=== PATIENT | male | born 1965 | race Caucasian/White ===

== ENCOUNTER 2018-02-07 05:33 | Day surgery (SDC) | payer BC ==
[~2018-02-07] VITALS: Ht 170.2 cm; Wt 88.0 kg
--- NOTE | ~2018-02-07 | OP ---
PATIENT NAME: MAYTE SAWYER MEDICAL RECORD: [id number] :65 LOCATION:D.OPS ADMISSION DATE: SURGEON: TIM OLMOS MD DATE OF OPERATION: 02/07/2018 PREOPERATIVE DIAGNOSES: 1. Bleeding internal hemorrhoids. 2. Hypertension. POSTOPERATIVE DIAGNOSES: 1. Bleeding internal hemorrhoids. 2. Hypertension. PROCEDURE: 1. Right anterior hemorrhoidectomy. 2. Anal exam under anesthesia. SURGEON: Tim Olmos MD REPORT OF PROCEDURE: The patient was placed in lithotomy position and the perianal region was prepped and draped in sterile fashion. A 360-degree inspection of the anus was performed using a [facility] endoscope. Upon inspection, the patient was noted to have a very large right anterior hemorrhoid that was mainly internal but had some external component extending out to a moderate-sized skin tag. The patient did have some smaller internal and external hemorrhoids visible in the other columns, but none of these were large enough to require any sort of intervention. We placed a 2-0 chromic at the base of the right anterior hemorrhoid. This was tied down tightly and then the hemorrhoid was excised off of the sphincteric musculature using electrocautery. Care was taken not to injure the sphincter muscles during this portion of the procedure. Once the hemorrhoid was removed, then we irrigated out the wound and stopped any bleeding using electrocautery. The previously placed suture was then run from internal to external in a locking fashion. We irrigated out the rectum one last time and assured there was no sign of any surgical bleeding, which there was none. The patient's anus was then packed with Gelfoam dipped in [place]. COMPLICATIONS: None. CONDITION: Stable. ANESTHESIA: General endotracheal. BLOOD LOSS: 50 mL. TRANSINT:[id number] Voice Confirmation ID: [id number] DOCUMENT ID: [id number] CC: Juan Carlos Payton OPERATIVE REPORT [id number] MAYTE SAWYER CHRISTIAN MD at 1110 CC: [id number] DICTATION DATE: 02/07/18 0844 PHYSICAL AERODYNAMICIST: 02/07/18 1201 [facility] 02/07/18 [place] [address]
[~2018-02-07 05:33] MED LIST: PRINIVIL20 MG PO
[2018-02-07 06:31] VITALS: BP 113/67; Ht 170.2 cm; Wt 88.0 kg
[2018-02-07 06:40] LABS: HEMATOCRIT 39.8 % (42.0-54.0); HEMOGLOBIN 14.4 g/dL (13.5-17.5); MCH 30.8 pg (26.0-34.0); MCHC 36.2 g/dL (31.0-37.0); MEAN PLATELET VOLUME 9.5 fL (7.4-10.4); RBC 4.68 10x6/uL (4.20-6.10); RDW 12.9 % (11.5-14.5)
[2018-02-07] MEDS ORDERED: HYDROCODONE-APA1 TAB PO (08:39)
== END 2018-02-07 14:15 | disposition home or self-care (01) ==
LOC: D.OPS 05:33 → D.PAN 08:15 → D.OPS 08:15
PROVIDERS: Anesthesiology
DX: K64.8 Other hemorrhoids (principal); Z01.812 Encounter for preprocedural laboratory examination